=== PATIENT | male | born 1940 | race Caucasian/White ===

== ENCOUNTER 2021-04-24 05:51 | Inpatient (IN) ==
[2021-04-24] MEDS ORDERED: cefTRIAXone 1,000 MG in SODIUM CHLORIDE 0.9% 100 ML IV ONE (06:00)
[2021-04-24] MEDS: LACTATED RINGERS 1,000 ML IV SCH (08:14)
[2021-04-24] MEDS ORDERED: cefTRIAXone 1,000 MG VIAL ONE (08:21)
[2021-04-24] MEDS ORDERED: KETAMINE 500 MG/10 ML VIAL ONE ×2 (08:29→13:45)
[2021-04-24] MEDS ORDERED: fentaNYL 100 MCG/2 ML VIAL ONE (08:36)
[2021-04-24] MEDS ORDERED: BUPIVACAINE SPINAL 0.75% 2 ML AMP SPINAL ONE (08:58)
[2021-04-24] MEDS ORDERED: propofoL 200 MG/20 ML VIAL IV ONE ×2 (09:34→09:50)
[2021-04-24] MEDS ORDERED: SODIUM CHLORIDE 0.9% 50 ML IV ONE (09:35)
[2021-04-24] MEDS ORDERED: ALBUTEROL/IPRATROPIUM 3 ML NEB RESP TX PRN (10:41)
[2021-04-24] MEDS ORDERED: ALBUTEROL 2.5 MG/3 ML NEB RESP TX PRN (11:48)
[2021-04-24 12:40] LABS: Basophils % 0.6 % (0.0-0.8); Eosinophils # 0.6 10*3/uL (0.0-0.87); Eosinophils % 8.2 % (0.00-10.9); Hematocrit 34.5 VOL% (42.0-52.0); Hemoglobin 10.7 GM/DL (14.0-18.0); Immature Granulocytes % 0.4 %; Immature Granulocytes Absolute 0.03 #; Lymphocytes # 1.5 10*3/uL (1.4-4.0); Lymphocytes % 21.9 % (21.2-54.2); Mean Platelet Volume 9.3 FL (9.6-12.0); Neutrophils % 56.9 % (38.7-73.9); Platelet Count 249 T/CUMM (130-400); Red Blood Count 3.52 MC/CUMM (3.8-5.5); Red Cell Distribution Width 13.7 % (9.3-17.3); White Blood Count 6.8 T/CUMM (4-12)
[2021-04-24 12:59] LABS: Osmolality,Calculated 290.4 MOS/KG (273-304); Potassium 4.8 MMOL/L (3.5-5.1)
[2021-04-24] MEDS ORDERED: ETOMIDATE 40 MG/20 ML VIAL IV ONE (13:45)
[2021-04-24] MEDS ORDERED: DEXMEDETOMIDINE 200 MCG/2 ML VIAL ONE (13:45)
[2021-04-24] MEDS ORDERED: MIDAZOLAM 2 MG/2 ML VIAL ONE (13:54)
[2021-04-24] MEDS ORDERED: GLYCOPYRROLATE 0.4 MG/2 ML VIAL ONE (14:22)
[2021-04-24] MEDS ORDERED: PHENYLEPHRINE 1 MG/10 ML SYRINGE IV ONE (14:46)
[2021-04-24] MEDS ORDERED: BELLADONNA/OPIUM 30 MG SUPP RECTAL ONE (15:28)
[2021-04-24 16:01] LABS: Basophils % 0.5 % (0.0-0.8); Eosinophils # 0.4 10*3/uL (0.0-0.87); Eosinophils % 4.6 % (0.00-10.9); Hematocrit 29.7 VOL% (42.0-52.0); Hemoglobin 9.4 GM/DL (14.0-18.0); Immature Granulocytes % 0.2 %; Immature Granulocytes Absolute 0.02 #; Lymphocytes # 1.5 10*3/uL (1.4-4.0); Lymphocytes % 18.8 % (21.2-54.2); Mean Corpuscular HGB Conc 31.6 GM/DL (32-36); Mean Platelet Volume 9.6 FL (9.6-12.0); Monocytes % 11.1 % (1.7-12.7); Neutrophils % 64.8 % (38.7-73.9); Platelet Count 206 T/CUMM (130-400); Red Blood Count 3.03 MC/CUMM (3.8-5.5); Red Cell Distribution Width 13.5 % (9.3-17.3); White Blood Count 8.1 T/CUMM (4-12)
[2021-04-24 16:32] LABS: INR 1.1; PT Patient Result 11.9 SECS (10.5-12.0); Partial Thromboplastin Time 29.3 SECS (23.9-33.8)
[2021-04-24 16:33] LABS: Calcium 8.4 MG/DL (8.5-10.1); Osmolality,Calculated 283.8 MOS/KG (273-304); Potassium 4.5 MMOL/L (3.5-5.1)
[2021-04-24] MEDS ORDERED: PHENYLEPHRINE DRIP 40 MG/250 ML PREMIX IV ONE (16:54)
[2021-04-24] MEDS ORDERED: SODIUM CHLORIDE 0.9% 500 ML IV ONE (16:54)
[2021-04-24 17:02] LABS: ABG Base Excess -2.7 MMOL/L (-2.5-2.5); ABG HCO3 22.2 MMOL/L (20-26); ABG Oxygen Saturation 99.9 % (95-100); ABG PCO2 46.4 MM HG (35-48); ABG PH 7.314 (7.35-7.45); ABG TCO2 21.8 MMOL/L (23-27)
[2021-04-24] MEDS ORDERED: PHENYLEPHRINE DRIP 40 MG/250 ML PREMIX IV PRN (17:02)
[2021-04-24] MEDS: ACETAMINOPHEN 325 MG TABLET PO SCH ×2 (18:54→22:21)
[2021-04-24] MEDS: cefTRIAXone 1,000 MG in SODIUM CHLORIDE 0.9% 100 ML IV SCH (18:54)
[2021-04-24] MEDS: BIMATOPROST 0.01% OPH SOLN 2.5 ML BOTTLE BOTH EYES SCH (20:56)
[2021-04-24 21:20] LABS: Hematocrit 32.7 VOL% (42.0-52.0); Hemoglobin 10.1 GM/DL (14.0-18.0)
[2021-04-25] MEDS: ACETAMINOPHEN 325 MG TABLET PO SCH ×4 (05:32→23:25)
[2021-04-25 06:30] LABS: Basophils % 0.5 % (0.0-0.8); Eosinophils # 0.4 10*3/uL (0.0-0.87); Eosinophils % 4.7 % (0.00-10.9); Hematocrit 29.1 VOL% (42.0-52.0); Hemoglobin 9.1 GM/DL (14.0-18.0); Immature Granulocytes % 1.6 %; Immature Granulocytes Absolute 0.14 #; Lymphocytes # 1.2 10*3/uL (1.4-4.0); Lymphocytes % 13.9 % (21.2-54.2); Mean Corpuscular HGB Conc 31.3 GM/DL (32-36); Mean Corpuscular Volume 98.6 FL (87-102); Mean Platelet Volume 9.5 FL (9.6-12.0); Monocytes % 10.4 % (1.7-12.7); Neutrophils % 68.9 % (38.7-73.9); Platelet Count 219 T/CUMM (130-400); Red Blood Count 2.95 MC/CUMM (3.8-5.5); Red Cell Distribution Width 13.6 % (9.3-17.3); White Blood Count 8.7 T/CUMM (4-12)
[2021-04-25 06:59] LABS: Calcium 8.3 MG/DL (8.5-10.1); Osmolality,Calculated 283.8 MOS/KG (273-304); Potassium 4.7 MMOL/L (3.5-5.1); Risk Ratio 2.41; VLDL Cholesterol 22.8 MG/DL
[2021-04-25] MEDS: SODIUM CHLORIDE 0.9% 1,000 ML IV SCH (07:56)
[2021-04-25] MEDS: TAMSULOSIN 0.4 MG CAPSULE PO SCH (08:26)
[2021-04-25] MEDS: ONDANSETRON 4 MG/2 ML VIAL IV PRN (08:29)
[2021-04-25] MEDS: TIMOLOL 0.25% OPH SOLN 5 ML BOTTLE BOTH EYES SCH (09:34)
[2021-04-25] MEDS: LACTATED RINGERS 1,000 ML IV SCH (10:42)
[2021-04-25] MEDS: cefTRIAXone 1,000 MG in SODIUM CHLORIDE 0.9% 100 ML IV SCH (11:28)
[2021-04-25 12:44] LABS: Hematocrit 27.3 VOL% (42.0-52.0); Hemoglobin 8.8 GM/DL (14.0-18.0)
[2021-04-25] MEDS ORDERED: PHENOL 1.4% THROAT SPRAY 177 ML BOTTLE PO ONE (14:45)
[2021-04-25] MEDS ORDERED: PHENOL 1.4% THROAT SPRAY 177 ML BOTTLE PO PRN (15:19)
[2021-04-25] MEDS ORDERED: BIMATOPROST 0.01% OPH SOLN 2.5 ML BOTTLE BOTH EYES SCH (21:00)
[2021-04-25] MEDS: BIMATOPROST 0.01% OPH SOLN 2.5 ML BOTTLE BOTH EYES SCH (21:15)
[2021-04-26] MEDS: SODIUM CHLORIDE 0.9% 1,000 ML IV SCH (01:07)
[2021-04-26] MEDS: ACETAMINOPHEN 325 MG TABLET PO SCH (04:48)
[2021-04-26 07:10] LABS: Basophils # 0.1 10*3/uL (0.0-0.2); Basophils % 0.6 % (0.0-0.8); Eosinophils # 0.5 10*3/uL (0.0-0.87); Eosinophils % 4.8 % (0.00-10.9); Hematocrit 27.8 VOL% (42.0-52.0); Hemoglobin 8.8 GM/DL (14.0-18.0); Immature Granulocytes % 0.7 %; Immature Granulocytes Absolute 0.07 #; Lymphocytes # 0.8 10*3/uL (1.4-4.0); Lymphocytes % 7.8 % (21.2-54.2); Mean Corpuscular HGB Conc 31.7 GM/DL (32-36); Mean Corpuscular Volume 98.2 FL (87-102); Mean Platelet Volume 9.7 FL (9.6-12.0); Monocytes % 8.2 % (1.7-12.7); Neutrophils % 77.9 % (38.7-73.9); Platelet Count 204 T/CUMM (130-400); Red Blood Count 2.83 MC/CUMM (3.8-5.5); Red Cell Distribution Width 13.5 % (9.3-17.3); White Blood Count 9.7 T/CUMM (4-12)
[2021-04-26 07:32] LABS: Calcium 8.2 MG/DL (8.5-10.1); Osmolality,Calculated 284.8 MOS/KG (273-304); Potassium 4.6 MMOL/L (3.5-5.1)
[2021-04-26 07:34] LABS: Hypochromasia 1+; Microcytosis 1+; Platelet Estimate Adequate
[2021-04-26] MEDS: ONDANSETRON 4 MG/2 ML VIAL IV PRN (07:54)
[2021-04-26] MEDS: TIMOLOL 0.25% OPH SOLN 5 ML BOTTLE BOTH EYES SCH (08:39)
[2021-04-26] MEDS: TAMSULOSIN 0.4 MG CAPSULE PO SCH (08:41)
[2021-04-26 08:51] VITALS: BP 137/59
[2021-04-26] MEDS ORDERED: TIMOLOL MALEATE 0.5% BOTH EYES SCH (09:00)
== END 2021-04-26 11:30 | disposition hospice, home (50) | DRG 669 ==
LOC: N.OR 05:51 → N.SDSINP 05:56 → N.3E 12:11
PROVIDERS: ADMIT Surgery; ATTEND Surgery